=== PATIENT | female | born 1940 | race Caucasian/White ===

== ENCOUNTER 2020-07-07 18:36 | Emergency (ER) | payer MEDICARE, MEDICAID ==
[~2020-07-07] VITALS: Ht 172.7 cm; Wt 79.1 kg
[~2020-07-07 18:36] MED LIST: ASPI-10 PO; ATOR40TA71 PO; DILT240C52 PO; ESOM40CA2 PO; LOSA25TA96 PO; POTA10TA10 PO
[2020-07-07] MEDS ORDERED: normal saline 1000ML IV soln IVB ONE ×2 (19:15→20:55)
[2020-07-07] MEDS ORDERED: ondansetron/PF 4mg/2ml inj IV ONE (19:15)
[2020-07-07] MEDS ORDERED: morphine 4 MG/ML inj SYRINge IV ONE (19:25)
[2020-07-07 19:33] LABS: BASOPHILS # (AUTO) 0.1 X10'3 (0-0.2); BASOPHILS % (AUTO) 0.7 % (0-1); EOSINOPHILS % (AUTO) 0 % (0-6); HEMATOCRIT 40.7 % (35.0-45.0); HEMOGLOBIN 13.4 g/dl (12.0-16.0); LYMPHOCYTES # (AUTO) 3.4 X10'3 (1.1-4.8); LYMPHOCYTES % (AUTO) 23.6 % (21-51); MEAN CORPUSCULAR HEMOGLOBIN 31.8 PG (27.0-31.0); MEAN CORPUSCULAR HGB CONC 32.9 g/dL (33.0-36.5); MEAN CORPUSCULAR VOLUME 96.6 FL (78-98); MONOCYTES # (AUTO) 0.5 X10'3 (0-0.9); MONOCYTES % (AUTO) 3.3 % (2-12); NEUTROPHILS # (AUTO) 10.5 X10'3 (1.8-7.7); NEUTROPHILS % (AUTO) 72.4 % (42-75); PLATELET COUNT 463 X10'3 (140-440); RED BLOOD COUNT 4.21 X10'6 (4.20-5.60); WHITE BLOOD COUNT 14.5 X10'3 (4.5-11.0)
[2020-07-07] MEDS ORDERED: proCHLORperazine 10 MG/2 ml inj IV ONE (19:40)
[2020-07-07 19:51] LABS: ALKALINE PHOSPHATASE 196 IU/L (46-116); ANION GAP 14 (8-16); ASPARTATE AMINO TRANSFERASE 15 U/L (10-37); BILIRUBIN,TOTAL 0.5 MG/DL (0.1-1.0); CHLORIDE 98 MMOL/L (99-107); GLUCOSE 158 MG/DL (70-104); LIPASE 250 U/L (73-393); POTASSIUM 3.3 MMOL/L (3.5-5.1); SODIUM 135 MMOL/L (135-145); TOTAL CARBON DIOXIDE 23.3 MMOL/L (24-32); TOTAL PROTEIN 9.3 G/DL (6.4-8.2)
[2020-07-07 20:05] LABS: ALANINE AMINOTRANSFERASE 24 U/L (12-78); ALBUMIN 4.2 G/DL (3.4-5.0); ALBUMIN/GLOBULIN RATIO 0.8 (1.1-1.5); BLOOD UREA NITROGEN 29 MG/DL (7-18); BUN/CREATININE RATIO 16.9 (6.6-38.0); CALCIUM 9.8 MG/DL (8.5-10.1); CREATININE 1.72 MG/DL (0.40-0.90); eGFR 29 ML/MIN
[2020-07-07 22:15] LABS: CLARITY,URINE SLIGHTLY CLOUDY (Clear); COLOR,URINE AMBER (Yellow); GLUCOSE, URINE NEGATIVE (Neg); KETONES,URINE NEGATIVE (Neg); LEUKOCYTE ESTERASE ,URINE NEGATIVE (Neg); NITRITES, URINE NEGATIVE (Neg); OCCULT BLOOD,URINE TRACE-LYSED (Neg); PROTEIN,URINE 100 mg/dl (Neg); UROBILINOGEN,URINE 0.2 E.U/dL (0.2-1.0)
[2020-07-07 22:31] LABS: UA COLLECTION TYPE STRAIGHT CATH
[2020-07-07 22:37] LABS: WBC,URINE 50-100 /HPF (0-4)
[2020-07-07 22:39] LABS: RBC,URINE 0-2 /HPF (0-2)
[2020-07-07 22:40] LABS: AMORPHOUS URATES 1+; BACTERIA,URINE NONE SEEN /HPF (Neg); MUCUS STRANDS MANY /LPF (Neg); SQUAMOUS EPITHELIAL CELL,UR FEW /LPF (FEW); WBC CLUMPS,URINE MODERATE /HPF (NEGATIVE)
[2020-07-07 22:54] VITALS: BP 143/81
[2020-07-07] MEDS ORDERED: PROC25SU31 RC (22:56)
[2020-07-07] MEDS ORDERED: POTA10TA36 PO (22:58)
[2020-07-07] MEDS ORDERED: HYDROcodone/acetaminophen 5mg/325mg tablet PO ONE (23:35)
[2020-07-07] MEDS ORDERED: CefTRIAXone 2gm/D5W 50ml BAG 50 ML IV ONE (23:45)
[2020-07-07] MEDS ORDERED: CEPH500C5 PO (23:46)
[2020-07-07] MEDS ORDERED: CefTRIAXone 1000mg IM Kit (w/lidocaine diluent) IM ONE (23:50)
[2020-07-07] MEDS ORDERED: CIPR-230 PO (23:58)
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
[2020-07-08 07:02] LABS: C DIFF ANTIGEN NEGATIVE (NEGATIVE); C DIFF SPECIMEN=DIARRHEA? ACCEPTABLE; C DIFFICILE TOXINS A&B NEGATIVE (Neg)
[2020-07-10] MEDS ORDERED: VALS1TAB76 PO (13:26)
== END 2020-07-08 00:52 | disposition home or self-care (01) ==
LOC: ER 18:36
DX: K52.9 Noninfective gastroenteritis and colitis, unspecified (principal); R11.2 Nausea with vomiting, unspecified; R19.7 Diarrhea, unspecified; R10.84 Generalized abdominal pain; I25.10 Atherosclerotic heart disease of native coronary artery without angina pectoris; I10 Essential (primary) hypertension; E11.9 Type 2 diabetes mellitus without complications; M19.90 Unspecified osteoarthritis, unspecified site; Z87.440 Personal history of urinary (tract) infections; Z86.73 Personal history of transient ischemic attack (TIA), and cerebral infarction without residual deficits; Z90.89 Acquired absence of other organs; Z90.710 Acquired absence of both cervix and uterus; Z98.890 Other specified postprocedural states; Z95.0 Presence of cardiac pacemaker; Z98.51 Tubal ligation status; Z88.2 Allergy status to sulfonamides; Z88.0 Allergy status to penicillin; Z88.8 Allergy status to other drugs, medicaments and biological substances; Z91.012 Allergy to eggs
CPT/HCPCS: 36415; 74176; 80053; 81001; 83605; 83690; 84145; 85025; 87040; 87088; 87324; 87449; 96361; 96372; 96374; 96375; 99285; J0696; J0780; J2270; J2405; J7030; 99284

== ENCOUNTER 2020-07-21 17:12 | Inpatient (IN) | payer MEDICARE, MEDICAID ==
[~2020-07-21] VITALS: Ht 162.6 cm; Wt 58.0 kg
[~2020-07-21 17:12] MED LIST changes: -LOSA25TA96 PO; +VALS1TAB76 PO
[2020-07-21] MEDS ORDERED: LIDOcaine 2% 10ml TOPICAL JELLY (Urojet) TP ONE (17:35)
[2020-07-21] MEDS ORDERED: normal saline 1000ML IV soln IVB ONE (17:40)
[2020-07-21] MEDS ORDERED: proCHLORperazine 10 MG/2 ml inj IV ONE (17:40)
[2020-07-21] MEDS ORDERED: ketorolac tromethamine 15mg/ml inj. IV ONE (17:40)
[2020-07-21] MEDS ORDERED: SUMAtriptan succ. 6 MG/0.5ml vial SQ ONE (17:40)
[2020-07-21 18:49] LABS: AMMONIA < 10 UMOL/L (11-32)
--- NOTE | 2020-07-21 19:00 | NUR ---
PT REFUSING FAVIAN. AWARE
[2020-07-21 19:21] LABS: BASOPHILS % (AUTO) 0.3 % (0-1); EOSINOPHILS % (AUTO) 0 % (0-6); HEMATOCRIT 26.5 % (35.0-45.0); HEMOGLOBIN 8.7 g/dl (12.0-16.0); LYMPHOCYTES # (AUTO) 2.5 X10'3 (1.1-4.8); LYMPHOCYTES % (AUTO) 20.7 % (21-51); MEAN CORPUSCULAR HEMOGLOBIN 31.8 PG (27.0-31.0); MEAN CORPUSCULAR HGB CONC 32.7 g/dL (33.0-36.5); MEAN CORPUSCULAR VOLUME 97.2 FL (78-98); MEAN PLATELET VOLUME 6.9 FL (7.4-10.4); MONOCYTES # (AUTO) 0.8 X10'3 (0-0.9); MONOCYTES % (AUTO) 6.7 % (2-12); NEUTROPHILS # (AUTO) 8.7 X10'3 (1.8-7.7); NEUTROPHILS % (AUTO) 72.3 % (42-75); RED BLOOD COUNT 2.73 X10'6 (4.20-5.60); RED CELL DISTRIBUTION WIDTH 14.5 % (11.5-14.5)
[2020-07-21 19:49] LABS: ALANINE AMINOTRANSFERASE 18 U/L (12-78); ALBUMIN/GLOBULIN RATIO 0.7 (1.1-1.5); ALKALINE PHOSPHATASE 111 IU/L (46-116); ANION GAP 13 (8-16); ASPARTATE AMINO TRANSFERASE 17 U/L (10-37); BILIRUBIN,TOTAL 0.5 MG/DL (0.1-1.0); C-REACTIVE PROTEIN 2.08 MG/DL (0.0-0.5); CALCIUM 8.2 MG/DL (8.5-10.1); CHLORIDE 98 MMOL/L (99-107); CREATININE 1.27 MG/DL (0.40-0.90); ETHANOL < 0.010 GM/DL (0.0-0.010); FERRITIN 187 NG/ML (8-252); GLUCOSE 110 MG/DL (70-104); POTASSIUM 3.3 MMOL/L (3.5-5.1); SODIUM 134 MMOL/L (135-145); TOTAL CARBON DIOXIDE 22.7 MMOL/L (24-32); TOTAL PROTEIN 7.4 G/DL (6.4-8.2); TROPONIN I < 0.04 NG/ML (0.0-0.05); eGFR 40 ML/MIN
[2020-07-21 19:50] LABS: BLOOD UREA NITROGEN 13 MG/DL (7-18); BUN/CREATININE RATIO 10.2 (6.6-38.0)
[2020-07-21 19:57] LABS: PLATELET COUNT 415 X10'3 (140-440)
--- NOTE | 2020-07-21 20:40 | NUR ---
md aware of hr increasing to 130's when straight cath performed. no new orders. will continue to monitor
[2020-07-21 21:21] LABS: CLARITY,URINE CLEAR (Clear); COLOR,URINE YELLOW (Yellow); GLUCOSE, URINE NEGATIVE (Neg); KETONES,URINE NEGATIVE (Neg); LEUKOCYTE ESTERASE ,URINE NEGATIVE (Neg); NITRITES, URINE NEGATIVE (Neg); OCCULT BLOOD,URINE TRACE-INTACT (Neg); PROTEIN,URINE NEGATIVE (Neg); UROBILINOGEN,URINE 0.2 E.U/dL (0.2-1.0)
[2020-07-21 21:25] LABS: URINE AMPHETAMINE SCREEN NEGATIVE (Neg); URINE BARBITUATE SCREEN NEGATIVE (Neg); URINE BENZODIAZEPINES SCREEN NEGATIVE (Neg); URINE CANNABINOID SCREEN NEGATIVE (Neg); URINE COCAINE SCREEN NEGATIVE (Neg); URINE METHADONE SCREEN NEGATIVE (Neg); URINE OPIATE SCREEN POSITIVE (Neg); URINE PHENCYCLIDINE SCREEN NEGATIVE (Neg)
[2020-07-21 21:29] LABS: UA COLLECTION TYPE STRAIGHT CATH
[2020-07-21 21:32] LABS: BACTERIA,URINE NONE SEEN /HPF (Neg); MUCUS STRANDS NONE SEEN /LPF (Neg); RBC,URINE 0-2 /HPF (0-2); SQUAMOUS EPITHELIAL CELL,UR FEW /LPF (FEW); WBC,URINE NONE SEEN /HPF (0-4)
--- NOTE | 2020-07-21 21:52 | NUR ---
Pt. Ok'd staff to talk to pt.'s niece Khalida Lrham about her care
[2020-07-21] MEDS ORDERED: ondansetron/PF 4mg/2ml inj IV PRN (22:35)
[2020-07-21] MEDS ORDERED: ipratropium/albuterol 3ml nebule NEB PRN ×2 (22:35)
[2020-07-21] MEDS ORDERED: potassium Cl 20 mEq SR tablet PO PRN (22:35)
[2020-07-21] MEDS ORDERED: magnesium 4gm in 100ml NS 100 ML IV PRN (22:35)
[2020-07-21] MEDS ORDERED: potassium CL 10mEq/100ml bag 100 ML IV PRN ×2 (22:35)
[2020-07-21] MEDS ORDERED: magnesium 2GM in 50ml NS 50 ML IV PRN (22:35)
[2020-07-21] MEDS ORDERED: magnesium Cl slow-release 64mg tablet PO PRN (22:35)
[2020-07-21] MEDS ORDERED: acetaminophen 325mg tablet PO PRN (22:35)
[2020-07-21] MEDS ORDERED: DOCU-148 PO (22:54)
[2020-07-21] MEDS ORDERED: ATOR40TA7 PO (22:54)
[2020-07-21] MEDS ORDERED: HYDR-4353 PO (22:56)
[2020-07-21] MEDS ORDERED: BISA10SU60 RC (22:56)
--- NOTE | 2020-07-21 23:04 | NUR ---
pt resting comfortably in bed, even respirations
[2020-07-21] MEDS: levoFLOXACIN-Levaquin 500mg/D5 100 ML IV SCH (23:20)
[2020-07-21] MEDS: normal saline 1000ml 1,000 ML IV SCH (23:20)
[2020-07-22] MEDS ORDERED: ZOLM2.5T7 PO (04:54)
--- NOTE | 2020-07-22 05:26 | NUR ---
I have received report from AIRAM Brown (ED) and had the opportunity to ask questions.
--- NOTE | 2020-07-22 05:30 | NUR ---
Pt. arrived in the unit via gurney from ED. Pt ambulated to her bed, but unstable. oriented pt to the room; call jimenez within reach; in low bed. Pt's cellphone is with the pt.. 2-RN skin assessment and MRSA swab are done.
[2020-07-22 05:57] VITALS: BP 132/75
--- NOTE | 2020-07-22 06:15 | NUR ---
Problems reprioritized. Patient report given, questions answered & plan of care reviewed with AIRAM Sullivan.
[2020-07-22 06:41] LABS: BASOPHILS % (AUTO) 0.4 % (0-1); EOSINOPHILS % (AUTO) 0.1 % (0-6); HEMATOCRIT 24.1 % (35.0-45.0); HEMOGLOBIN 8.3 g/dl (12.0-16.0); LYMPHOCYTES # (AUTO) 1.4 X10'3 (1.1-4.8); LYMPHOCYTES % (AUTO) 16.7 % (21-51); MEAN CORPUSCULAR HEMOGLOBIN 33.1 PG (27.0-31.0); MEAN CORPUSCULAR HGB CONC 34.5 g/dL (33.0-36.5); MEAN CORPUSCULAR VOLUME 96.2 FL (78-98); MEAN PLATELET VOLUME 7.1 FL (7.4-10.4); MONOCYTES # (AUTO) 0.6 X10'3 (0-0.9); MONOCYTES % (AUTO) 7.4 % (2-12); NEUTROPHILS # (AUTO) 6.5 X10'3 (1.8-7.7); NEUTROPHILS % (AUTO) 75.4 % (42-75); PLATELET COUNT 377 X10'3 (140-440); RED BLOOD COUNT 2.51 X10'6 (4.20-5.60); RED CELL DISTRIBUTION WIDTH 14.5 % (11.5-14.5); WHITE BLOOD COUNT 8.6 X10'3 (4.5-11.0)
--- NOTE | 2020-07-22 06:45 | NUR ---
Patient in room PCU 3025. I have received report from Radha ALEGRIA and had the opportunity to ask questions and assume patient care.
[2020-07-22 06:46] LABS: ALBUMIN 2.7 G/DL (3.4-5.0); ANION GAP 12 (8-16); BLOOD UREA NITROGEN 13 MG/DL (7-18); BUN/CREATININE RATIO 10.9 (6.6-38.0); CALCIUM 7.9 MG/DL (8.5-10.1); CHLORIDE 105 MMOL/L (99-107); CREATININE 1.19 MG/DL (0.40-0.90); GLUCOSE 101 MG/DL (70-104); MAGNESIUM 1.3 MG/DL (1.5-2.4); POTASSIUM 3.1 MMOL/L (3.5-5.1); SODIUM 139 MMOL/L (135-145); TOTAL CARBON DIOXIDE 22.4 MMOL/L (24-32); eGFR 44 ML/MIN
[2020-07-22] MEDS ORDERED: docusate sod 100mg capsule PO SCH (08:00)
[2020-07-22] MEDS: K and/or MAG REPLACEMENT MC SCH ×2 (08:00→20:00)
[2020-07-22] MEDS: HYDROchlorothiazide 12.5mg capsule PO SCH (08:10)
[2020-07-22] MEDS: docusate sod 100mg capsule PO SCH ×2 (08:10→20:00)
[2020-07-22] MEDS: aspirin 325mg tablet, delayed-release (Ecotrin) PO SCH (08:10)
[2020-07-22] MEDS: diltiazem CD 120mg capsule (once-daily) PO SCH (08:11)
[2020-07-22] MEDS: pantoprazole 40mg Tablet.DR PO SCH (08:11)
[2020-07-22] MEDS: losartan 50mg tablet PO SCH (08:12)
[2020-07-22] MEDS: normal saline 1000ml 1,000 ML IV SCH ×2 (08:12→22:48)
[2020-07-22 11:00] VITALS: BP 156/64
[2020-07-22] MEDS: potassium Cl 20 mEq SR tablet PO PRN ×3 (11:13→22:36)
[2020-07-22 15:00] VITALS: BP 141/63
[2020-07-22 18:00] VITALS: BP 151/60
--- NOTE | 2020-07-22 18:30 | NUR ---
Patient in room PCU 3025. I have received report from Laurie Elizabeth RN and had the opportunity to ask questions and assume patient care.
[2020-07-22] MEDS ORDERED: atorvastatin 20mg tablet PO SCH (21:00)
[2020-07-22] MEDS ORDERED: non-formulary drug (Atorvastatin Calcium (Lipitor) 1 TAB) PO SCH (21:00)
[2020-07-22] MEDS: lactobacillus rhamnosus 10,000 MMU CELLS/CAPSULE PO SCH (21:35)
[2020-07-22] MEDS: levoFLOXACIN-Levaquin 500mg/D5 100 ML IV SCH (21:36)
[2020-07-22 22:00] VITALS: BP 130/60
[2020-07-23 02:00] VITALS: BP 131/56
[2020-07-23] MEDS: normal saline 1000ml 1,000 ML IV SCH (04:50)
--- NOTE | 2020-07-23 05:14 | NUR ---
I have reviewed Muriel student RN charting and i agree.
[2020-07-23 06:00] VITALS: BP 125/76
--- NOTE | 2020-07-23 06:23 | NUR ---
Problems reprioritized. Patient report given, questions answered & plan of care reviewed with Laurie lEizabeth RN.
[2020-07-23 06:47] LABS: ALBUMIN 2.8 G/DL (3.4-5.0); ANION GAP 12 (8-16); BLOOD UREA NITROGEN 12 MG/DL (7-18); BUN/CREATININE RATIO 11.7 (6.6-38.0); CALCIUM 8.5 MG/DL (8.5-10.1); CHLORIDE 109 MMOL/L (99-107); CREATININE 1.03 MG/DL (0.40-0.90); GLUCOSE 85 MG/DL (70-104); MAGNESIUM 2.9 MG/DL (1.5-2.4); POTASSIUM 4.1 MMOL/L (3.5-5.1); SODIUM 141 MMOL/L (135-145); TOTAL CARBON DIOXIDE 20.3 MMOL/L (24-32); eGFR 52 ML/MIN
[2020-07-23 07:06] LABS: BASOPHILS % (AUTO) 0.4 % (0-1); EOSINOPHILS % (AUTO) 0.3 % (0-6); HEMOGLOBIN 8.3 g/dl (12.0-16.0); LYMPHOCYTES # (AUTO) 1.3 X10'3 (1.1-4.8); LYMPHOCYTES % (AUTO) 17.1 % (21-51); MEAN CORPUSCULAR HEMOGLOBIN 33.3 PG (27.0-31.0); MEAN CORPUSCULAR HGB CONC 34.4 g/dL (33.0-36.5); MEAN CORPUSCULAR VOLUME 96.6 FL (78-98); MEAN PLATELET VOLUME 7.1 FL (7.4-10.4); MONOCYTES # (AUTO) 0.5 X10'3 (0-0.9); NEUTROPHILS # (AUTO) 5.7 X10'3 (1.8-7.7); NEUTROPHILS % (AUTO) 75.2 % (42-75); PLATELET COUNT 420 X10'3 (140-440); RED BLOOD COUNT 2.49 X10'6 (4.20-5.60); RED CELL DISTRIBUTION WIDTH 14.6 % (11.5-14.5); WHITE BLOOD COUNT 7.5 X10'3 (4.5-11.0)
[2020-07-23] MEDS: docusate sod 100mg capsule PO SCH (08:00)
[2020-07-23] MEDS: HYDROchlorothiazide 12.5mg capsule PO SCH (08:19)
[2020-07-23] MEDS: aspirin 325mg tablet, delayed-release (Ecotrin) PO SCH (08:19)
[2020-07-23] MEDS: lactobacillus rhamnosus 10,000 MMU CELLS/CAPSULE PO SCH (08:19)
[2020-07-23] MEDS: diltiazem CD 120mg capsule (once-daily) PO SCH (08:19)
[2020-07-23 08:20] VITALS: BP_SYST 140
[2020-07-23] MEDS: losartan 50mg tablet PO SCH (08:20)
[2020-07-23] MEDS: pantoprazole 40mg Tablet.DR PO SCH (08:20)
[2020-07-23] MEDS: K and/or MAG REPLACEMENT MC SCH (08:35)
--- NOTE | 2020-07-23 14:00 | NUR ---
Report to Suzy at [facility]. Plan of care, Acute care stay with findings and medications reviewed.
== END 2020-07-23 13:30 | DRG 871 ==
LOC: ER 17:12 → ED HOLD 22:31 → PCU 3S 07-22 05:31
PROVIDERS: ADMIT Internal Medicine; ATTEND Family Medicine
DX: A41.9 Sepsis, unspecified organism (principal); N17.0 Acute kidney failure with tubular necrosis; G93.41 Metabolic encephalopathy; G43.909 Migraine, unspecified, not intractable, without status migrainosus; Z88.0 Allergy status to penicillin; Z88.8 Allergy status to other drugs, medicaments and biological substances; Z88.1 Allergy status to other antibiotic agents; E11.22 Type 2 diabetes mellitus with diabetic chronic kidney disease; D63.8 Anemia in other chronic diseases classified elsewhere; G89.29 Other chronic pain; K21.9 Gastro-esophageal reflux disease without esophagitis; M19.90 Unspecified osteoarthritis, unspecified site; E86.0 Dehydration; Z91.012 Allergy to eggs; E78.5 Hyperlipidemia, unspecified; I25.10 Atherosclerotic heart disease of native coronary artery without angina pectoris; K29.70 Gastritis, unspecified, without bleeding; E87.6 Hypokalemia; E78.00 Pure hypercholesterolemia, unspecified; I25.2 Old myocardial infarction; I12.9 Hypertensive chronic kidney disease with stage 1 through stage 4 chronic kidney disease, or unspecified chronic kidney disease; N18.9 Chronic kidney disease, unspecified; Z20.828 Contact with and (suspected) exposure to other viral communicable diseases; Z86.73 Personal history of transient ischemic attack (TIA), and cerebral infarction without residual deficits; Z95.1 Presence of aortocoronary bypass graft; Z90.710 Acquired absence of both cervix and uterus
CPT/HCPCS: 36415; 70450; 71045; 80048; 80053; 80305; 80320; 81001; 82140; 82728; 82948; 83605; 83735; 84145; 84484; 85025; 85384; 86140; 87040; 87081; 87635; 93005; 94760; 96361; 96372; 96374; 96375; 97161; 97530; 99285; C9803; G0378; J0780; J1885; J1956; J3030; J3475; J7030